=== PATIENT | female | born 1965 | race Caucasian/White ===

== ENCOUNTER 2016-05-27 00:52 | Observation (INO) | payer OTHER ==
[2016-05-27] MEDS ORDERED: ONDANSETRON 4 MG/2 ML VIAL IVP ONE ×2 (01:04→02:06)
[2016-05-27] MEDS ORDERED: NS 1,000 ML IV ONE ×3 (01:04→02:53)
--- NOTE | 2016-05-27 01:04 | EDPHY ---
H & P Stated Complaint: N/V/D since 199905/26/16 HPI/ROS: HPI CHIEF COMPLAINT: Abdominal pain, nausea, vomiting, diarrhea HISTORY OF PRESENT ILLNESS: This patient very pleasant 51-year-old female, denies any significant medical history, does not take any daily medications, no abdominal surgical history she presents emergency room with nausea vomiting and diarrhea. She tells me around 830 this evening she developed sudden-onset nausea, vomiting which is nonbilious nonbloody, as well as watery diarrhea. she also has abdominal cramping. She denies chest pain or shortness of breath. She tells me she has abdominal cramping mid abdomen. Denies fever. This was sudden onset. She ate tuna around 230 in the afternoon. She tells me that she vomited 20+ times. She still feels nauseous. She arrived to the emergency room by private vehicle for ongoing nausea vomiting. No sick contacts. Past Medical History: Denies significant medical history Past Surgical History: Denies significant surgical history Social History: denies use of drugs alcohol tobacco products, works as a professor teaches education Family History: noncontributory ROS REVIEW OF SYSTEMS: A comprehensive 10 point review of systems is otherwise negative aside from elements mentioned in the history of present illness. Exam Constitutional triage nursing summary reviewed, vital signs reviewed, awake/ alert. Eyes normal conjunctivae and sclera, EOMI, PERRLA. HENT normal inspection, atraumatic, moist mucus membranes, no epistaxis, neck supple/ no meningismus, no raccoon eyes. Respiratory clear to auscultation bilaterally, normal breath sounds, no respiratory distress, no wheezing. Cardiovascular rate normal, regular rhythm, no murmur, no edema, distal pulses normal. Gastrointestinal soft, mild tender palpation mid abdomen , no rebound, no guarding, normal bowel sounds, no distension, no pulsatile mass. Genitourinary no CVA tenderness. Musculoskeletal no midline vertebral tenderness, full range of motion, no calf swelling, no tenderness of extremities, no meningismus, good pulses, neurovascularly intact. Skin pink, warm, & dry, no rash, skin atraumatic. Neurologic awake, alert and oriented x 3, AAOx3, moves all 4 extremities equally, motor intact, sensory intact, CN II-XII intact, normal cerebellar, normal vision, normal speech. Psychiatric normal mood/affect. Heme/Lymph/Immune no lymphadenopathy. Differential diagnosis includes but is not limited to and in no particular order : Dehydration, electrolyte abnormality Bowel obstruction, appendicitis, gallbladder disease, diverticulitis, colitis, enteritis, perforated viscus, gastritis, GERD, esophagitis, urinary tract infection, pyelonephritis, kidney stones Medical Decision Making: This patient had an IV established receive a 2 L fluid bolus, IV Zofran for nausea she will have a CT scan of her abdomen pelvis to rule out significant acute intra-abdominal pathology. Check electrolytes, CBC, urinalysis, test. Re-evaluation: 0253: re-examination at this time this patient is still having nausea no active vomiting. Is noted her temperature is 38.3degrees. I will order Tylenol. She is still having ongoing nausea. I have given her Zofran and 2 L of IV fluid. I will admit to the hospitalist service for ongoing nausea vomiting and abdominal pain. Her CT scan does show enteritis. I have ordered her IV Ativan to help with her nausea as Zofran is not 100% improving. She has multiple other allergies. She is agreeable on admission for persistent nausea vomiting diarrhea enteritis. I spoke with Dr. Kaufman Who agrees to admit. Source: Patient - Personal History LMP (Females 10-55): 8-14 Days Ago Current Tetanus/Diphtheria Vaccine: Yes Tetanus Vaccine Date: 2014 - Medical/Surgical History Hx Asthma: No Hx Chronic Respiratory Disease: No Hx Diabetes: No Hx Cardiac Disease: No Hx Renal Disease: No Hx Cirrhosis: No Hx Alcoholism: No Hx HIV/AIDS: No Hx Splenectomy or Spleen Trauma: No Other PMH: bipolar diatheses (mother is bipolar). r lumpectomy of breast. appy 1997. leap procedure 1999 HPV. shingles. lasik. Hyperemesis Gravidarum. 2008 - Social History Smoking Status: Never smoked Constitutional: Initial Vital Signs Temperature (C) 36.6 C 05/27/16 00:55 Heart Rate 103 H 05/27/16 00:55 Respiratory Rate 14 05/27/16 00:55 Blood Pressure 103/89 H 05/27/16 00:55 O2 Sat (%) 99 05/27/16 00:55 O2 Delivery Mode Room Air O2 (L/minute) 2 Allergies/Adverse Reactions: fentanyl Allergy (Verified 04/23/15 14:43) lamotrigine [From Lamictal] Allergy (Verified 08/16/13 18:05) meperidine HCl [From Demerol] Allergy (Verified 08/11/14 09:36) Other-Enter Comments metoclopramide HCl [From Reglan] Allergy (Verified 07/29/14 09:40) prochlorperazine edisylate [From Compazine] Allergy (Verified 08/16/13 17:59) prochlorperazine maleate [From Compazine] Allergy (Verified 08/16/13 17:59) promethazine HCl [From Phenergan] Allergy (Verified 08/16/13 18:05) Home Medications: Medication Instructions Recorded QUEtiapine FUMARATE [Seroquel 25 6.25 mg PO HS 05/27/16 mg (*)] Medical Decision Making - Data Points Laboratory Results: Laboratory Results 05/27/16 01:45 05/27/16 01:20 Medications Given: Discontinued Medications Acetaminophen (Tylenol) 1,000 mg PO EDNOW ONE Stop: 05/27/16 02:47 Last Admin: 05/27/16 03:58 Dose: 1,000 mg Acetaminophen (Tylenol) 500 - 1,000 mg PO Q6HRS PRN PRN Reason: Pain, Mild/Fever, Can Take PO Stop: 11/23/16 04:26 Last Admin: 05/27/16 20:52 Dose: 1,000 mg Sodium Chloride (Ns) 1,000 mls @ 0 mls/hr IV ONCE ONE PRN Reason: Wide Open Stop: 05/27/16 01:05 Last Admin: 05/27/16 01:25 Dose: 1,000 mls Sodium Chloride (Ns) 1,000 mls @ 0 mls/hr IV ONCE ONE PRN Reason: Wide Open Stop: 05/27/16 01:10 Last Admin: 05/27/16 01:23 Dose: 1,000 mls Sodium Chloride (Ns) 1,000 mls @ 0 mls/hr IV ONCE ONE PRN Reason: Wide Open Stop: 05/27/16 02:54 Last Admin: 05/27/16 03:11 Dose: 1,000 mls Sodium Chloride (Ns) 1,000 mls @ 100 mls/hr IV CONT ERIC Stop: 11/23/16 04:29 Last Admin: 05/27/16 05:07 Dose: 1,000 mls Ibuprofen (Motrin) 600 mg PO EDNOW ONE Stop: 05/27/16 05:28 Last Admin: 05/27/16 05:28 Dose: 600 mg Ibuprofen (Motrin) 600 mg PO Q6 PRN PRN Reason: FEVER/PAIN Stop: 11/23/16 19:25 Last Admin: 05/27/16 19:32 Dose: 600 mg Lorazepam (Ativan Injection) 1 mg IVP EDNOW ONE Stop: 05/27/16 02:54 Last Admin: 05/27/16 03:11 Dose: 1 mg Ondansetron HCl (Zofran) 4 mg IVP EDNOW ONE Stop: 05/27/16 01:05 Last Admin: 05/27/16 01:23 Dose: 4 mg Ondansetron HCl (Zofran) 4 mg IVP EDNOW ONE Stop: 05/27/16 02:07 Last Admin: 05/27/16 02:11 Dose: 4 mg Quetiapine Fumarate (Seroquel) 6.25 mg PO HS [facility] Stop: 11/23/16 20:59 Last Admin: 05/27/16 20:53 Dose: 6.25 mg Departure - Departure Disposition: [facility] Acute Clinical Impression: Nausea & vomiting Qualifiers: Vomiting type: unspecified Vomiting Intractability: intractable Qualifier Code : (R11.2) Nausea with vomiting, unspecified Condition: Fair
[2016-05-27] MEDS ORDERED: ONDANSETRON 4 MG/2 ML VIAL ONE (01:05)
[2016-05-27 01:34] LABS: INR 0.96 (0.83-1.16); PROTIME(PATIENT) 12.7 SEC (12.0-15.0)
[2016-05-27] MEDS ORDERED: IOPAMIDOL (ISOVUE-300) 100 ML BTL IV ONE (01:41)
[2016-05-27 01:52] LABS: % IMMATURE GRANULYOCYTES 0.1 % (0.0-1.1); ABSOLUTE IMMATURE GRANULOCYTES 0.01 10^3/uL (0.00-0.10); ADD DIFF? NO; ADD MORPH? NO; ADD SCAN? NO; ATYPICAL LYMPHOCYTE FLAG 0 (0-99); FRAGMENT RBC FLAG 0 (0-99); HEMATOCRIT 41.5 % (38.0-47.0); HEMOGLOBIN 13.7 g/dL (12.6-16.3); LEFT SHIFT FLG 30 (0-99); LIPEMIA HEMOLYSIS FLAG 80 (0-99); MEAN CELL HEMOGLOBIN 30.2 pg (27.9-34.1); MEAN CELL VOLUME 91.4 fL (81.5-99.8); MEAN PLATELET VOLUME 10.2 fL (8.7-11.7); PLATELET CLUMPS FLAG 0 (0-99); PLATELET COUNT 129 10^3/uL (150-400); RED BLOOD CELL COUNT 4.54 10^6/uL (4.18-5.33); RED CELL DISTRIBUTION WIDTH 13.2 % (11.5-15.2)
[2016-05-27 02:06] LABS: ALANINE AMINOTRANSFERASE 49 IU/L (9-52); ALBUMIN 5.2 g/dL (3.5-5.0); ALKALINE PHOSPHATASE 77 IU/L (38-126); ANION GAP 15 mEq/L (8-16); ASPARTATE AMINOTRANSFERASE 54 IU/L (14-46); BILIRUBIN,TOTAL 0.8 mg/dL (0.1-1.4); BILIRUBIN-CONJUGATED 0.5 mg/dL (0.0-0.5); BILIRUBIN-UNCONJUGATED 0.3 mg/dL (0.0-1.1); CALCIUM 10.1 mg/dL (8.5-10.4); CARBON DIOXIDE 22 mEq/l (22-31); CHLORIDE 107 mEq/L (97-110); CREATININE 0.8 mg/dL (0.6-1.0); GLOMERULAR FILTRATION RATE > 60; GLUCOSE 134 mg/dL (70-100); POTASSIUM 3.8 mEq/L (3.5-5.2); SODIUM 144 mEq/L (134-144); TOTAL PROTEIN 9.1 g/dL (6.3-8.2)
[2016-05-27 02:17] LABS: OCCULT BLOOD FECES POSITIVE (NEGATIVE)
[2016-05-27 02:37] LABS: TROPONIN I < 0.012 ng/mL (0-0.034)
[2016-05-27] MEDS ORDERED: ACETAMINOPHEN 500 MG TAB PO ONE (02:46)
[2016-05-27] MEDS ORDERED: LORazepam 2 MG/ML INJ IVP ONE (02:53)
[2016-05-27] MEDS ORDERED: LORazepam 2 MG/ML INJ IVP PRN (04:27)
[2016-05-27] MEDS ORDERED: ACETAMINOPHEN 500 MG TAB PO PRN (04:27)
[2016-05-27] MEDS ORDERED: ONDANSETRON DISINTEGRATING 4 MG TAB PO PRN (04:27)
[2016-05-27] MEDS ORDERED: ONDANSETRON 4 MG/2 ML VIAL IVP PRN (04:27)
[2016-05-27] MEDS ORDERED: NS 1,000 ML IV SCH (04:30)
--- NOTE | 2016-05-27 05:21 | PDGENHP ---
History and Physical - Chief Complaint nausea, vomiting, diarrhea - History of Present Illness Patient is a 51/F with no significant past medical history who presents to the ED with complaint of acute onset n/v/d. Patient states symptoms started this evening at around 11pm, with sudden onset nausea, then started vomiting ( nonbilious, nonbloody) and having diarrhea (reports brown and red stool). She reports multiple episodes of each (> 6x), so she decided to come to the ED for further evaluation and treatment. She reports some associated chills and diffusely crampy abdominal pain, denies fevers, cough, shortness of breath, chest pain or dysuria. She also denies any recent travel outside the ( recently was in [place], [place]), denies any unusual food (ate tuna for dinner), denies recent hiking. On arrival to the ED, patient was afebrile and hemodynamically stable, but was continuously vomiting and had an episode of diarrhea. Labs were largely wnl. CT abd/pelvis was obtained and revealed enteritis of the small bowel without evidence of obstruction, perforation. She was given IVF hydration, symptom control and admitted to the hospitalist service for further management. History Information - Allergies/Home Medication List Allergies/Adverse Reactions: fentanyl Allergy (Verified 08/11/14 14:43) lamotrigine [From Lamictal] Allergy (Verified 08/16/13 18:05) meperidine HCl [From Demerol] Allergy (Verified 08/11/14 09:36) Other-Enter Comments metoclopramide HCl [From Reglan] Allergy (Verified 07/29/14 09:40) prochlorperazine edisylate [From Compazine] Allergy (Verified 08/16/13 17:59) prochlorperazine maleate [From Compazine] Allergy (Verified 08/16/13 17:59) promethazine HCl [From Phenergan] Allergy (Verified 08/16/13 18:05) Home Medications: Seroquel 07/29/14 [Last Taken Unknown] QUEtiapine FUMARATE [SEROquel] 8 mg PO DAILY 08/11/14 [Last Taken Unknown] I have personally reviewed and updated: family history, medical history, social history, surgical history - Past Medical History no pertinent PMH - Surgical History Additional surgical history: appendectomy. breast biopsy. tonsillectomy - Family History Additional family history: M: bipolar disorder. 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 Independent in ADLs. Review of Systems ROS: 10pt was reviewed & negative except for what was stated in HPI & below Physical Exam Temp Pulse Resp BP Pulse Ox 38.9 C H 112 H 18 117/74 97 05/27/16 03:58 05/27/16 03:58 05/27/16 03:58 05/27/16 03:58 05/27/16 03:58 Constitutional: no apparent distress, appears nourished, not in pain Eyes: PERRL, anicteric sclera, EOMI Ears, Nose, Mouth, Throat: hearing normal, ears appear normal, no oral mucosal ulcers, dry mucous membranes Cardiovascular: regular rate and rhythym, no murmur, rub, or gallop, pulses symmetric bilaterally, No JVD, No edema Peripheral Pulses: 2+: dorsalis-pedis (R), dorsalis-pedis (L) Respiratory: no respiratory distress, no rales or rhonchi, clear to auscultation Gastrointestinal: normoactive bowel sounds, tenderness (mild diffuse tenderness) , No guarding, No rebound, No distension Genitourinary: no bladder fullness, no bladder tenderness Skin: warm, normal color, no rashes or abrasions, no fluctuance, no induration, No mottled Musculoskeletal: full muscle strength, no muscle tenderness, normal joint ROM, no joint effusions Neurologic: AAOx3, sensation intact bilaterally, CN II-XII Intact, No weakness, No numbness Psychiatric: interacting appropriately, not anxious, not encephalopathic, thought process linear Lab Data & Imaging Review 05/27/16 01:45 05/27/16 01:20 WBC 7.20 10^3/uL (3.80-9.50) 05/27/16 01:45 RBC 4.54 10^6/uL (4.18-5.33) 05/27/16 01:45 Hgb 13.7 g/dL (12.6-16.3) 05/27/16 01:45 Hct 41.5 % (38.0-47.0) 05/27/16 01:45 MCV 91.4 fL (81.5-99.8) 05/27/16 01:45 MCH 30.2 pg (27.9-34.1) 05/27/16 01:45 MCHC 33.0 g/dL (32.4-36.7) 05/27/16 01:45 RDW 13.2 % (11.5-15.2) 05/27/16 01:45 Plt Count 129 10^3/uL (150-400) L 05/27/16 01:45 MPV 10.2 fL (8.7-11.7) 05/27/16 01:45 Neut % (Auto) 89.9 % (39.3-74.2) H 05/27/16 01:45 Lymph % (Auto) 6.4 % (15.0-45.0) L 05/27/16 01:45 [place] % (Auto) 3.2 % (4.5-13.0) L 05/27/16 01:45 Eos % (Auto) 0.3 % (0.6-7.6) L 05/27/16 01:45 Baso % (Auto) 0.1 % (0.3-1.7) L 05/27/16 01:45 Nucleat RBC Rel Count 0.0 % (0.0-0.2) 05/27/16 01:45 Absolute Neuts (auto) 6.47 10^3/uL (1.70-6.50) 05/27/16 01:45 Absolute Lymphs (auto) 0.46 10^3/uL (1.00-3.00) L 05/27/16 01:45 Absolute Monos (auto) 0.23 10^3/uL (0.30-0.80) L 05/27/16 01:45 Absolute Eos (auto) 0.02 10^3/uL (0.03-0.40) L 05/27/16 01:45 Absolute Basos (auto) 0.01 10^3/uL (0.02-0.10) L 05/27/16 01:45 Absolute Nucleated RBC 0.00 10^3/uL (0-0.01) 05/27/16 01:45 Immature Gran % 0.1 % (0.0-1.1) 05/27/16 01:45 Immature Gran # 0.01 10^3/uL (0.00-0.10) 05/27/16 01:45 PT 12.7 SEC (12.0-15.0) 05/27/16 01:20 INR 0.96 (0.83-1.16) 05/27/16 01:20 APTT 22.0 SEC (23.0-38.0) L 05/27/16 01:20 VBG Lactic Acid 2.0 mmol/L (0.7-2.1) 05/27/16 01:20 Sodium 144 mEq/L (134-144) 05/27/16 01:20 Potassium 3.8 mEq/L (3.5-5.2) 05/27/16 01:20 Chloride 107 mEq/L (97-110) 05/27/16 01:20 Carbon Dioxide 22 mEq/l (22-31) 05/27/16 01:20 Anion Gap 15 mEq/L (8-16) 05/27/16 01:20 BUN 20 mg/dL (7-23) 05/27/16 01:20 Creatinine 0.8 mg/dL (0.6-1.0) 05/27/16 01:20 Estimated GFR > 60 05/27/16 01:20 Glucose 134 mg/dL (70-100) H 05/27/16 01:20 Calcium 10.1 mg/dL (8.5-10.4) 05/27/16 01:20 Total Bilirubin 0.8 mg/dL (0.1-1.4) 05/27/16 01:20 Conjugated Bilirubin 0.5 mg/dL (0.0-0.5) 05/27/16 01:20 Unconjugated Bilirubin 0.3 mg/dL (0.0-1.1) 05/27/16 01:20 AST 54 IU/L (14-46) H 05/27/16 01:20 ALT 49 IU/L (9-52) 05/27/16 01:20 Alkaline Phosphatase 77 IU/L (38-126) 05/27/16 01:20 Troponin I < 0.012 ng/mL (0-0.034) 05/27/16 01:20 Total Protein 9.1 g/dL (6.3-8.2) H 05/27/16 01:20 Albumin 5.2 g/dL (3.5-5.0) H 05/27/16 01:20 Lipase 91.0 IU/L (23-300) 05/27/16 01:20 Beta HCG, Qual NEGATIVE 05/27/16 01:20 Stool Occult Bld Scrn POSITIVE (NEGATIVE) H 05/27/16 01:00 Visualized and Interpreted imaging results: Yes Interpretation: CT abd/pelvis: enteritis with fluid filled small bowel, no evidence of obstruction or perfortation. Assessment & Plan Assessment: Patient is a 51/F with no significant past medical history who presents to the ED with acute onset n/v/d and abdominal pain. CT reveals possible enteritis. Plan: # acute gastroenteritis Patient hemodynamically stable, LFTs, including lipase wnl. CT reveals possible acute enteritis and occult blood in stool is positive. Likely infectious etiology of symptoms, with viral leading the differential, but bacterial vs parasitic also possible. Patient denies any recent antibiotic use or travel outside [place]. Also denies any other sick contacts. Will f/u GI pathogens panel, continue IVF hydration, symptomatic treatment of n/v with zofran. No indication for antibiotics at this time. # sepsis Patient was initially afebrile, but while in the ED pt spiked temp, became tachycardic. Source is likely GI, no other infectious complaints, UA negative. Lactic acid wnl, pt given adequate IVF hydration in ED. Will cont to monitor fever curve, give tylenol prn and treat acute gastroenteritis. No indication for abx. # thrombocytopenia Slightly decreased platelets on admission CBC, but appears to be at baseline when comparing to previous labs. Will cont to monitor plts and for signs of bleeding. # dispo: admit to observation status # gen: clear liquid diet DVT ppx: low risk Full code
[2016-05-27] MEDS ORDERED: IBUPROFEN 600 MG TAB PO ONE ×3 (05:24→05:27)
[2016-05-27 06:17] LABS: COLOR PALE YELLOW; LEUKOCYTE ESTERASE,URINE NEGATIVE (NEGATIVE); NITRITE,URINE NEGATIVE (NEGATIVE)
[2016-05-27 06:48] LABS: BACTERIA TRACE /hpf (NONE SEEN); MUCUS TRACE /lpf (NONE-1+)
--- NOTE | 2016-05-27 08:28 | CT ---
CT Scan of the Abdomen and Pelvis (With Contrast) May 27, 2016 at 0225 hours. Indication: Abdominal pain. Nausea and vomiting. Technique: 80 mL of Isovue 300 were given intravenously by machine power injection. [facility] was performed from the diaphragm to the symphysis pubis. Dose reduction techniques w ere utilized. Findings: Abdomen: The lung bases are clear. Liver is unremarkable. Gallbladder is unremarkable. Pancreas is no rmal in size and appearance. Spleen is unremarkable. Both adrenal glands are normal in size and appea arti. Both kidneys enhance normally without evidence for hydronephrosis or solid mass. No significan t abdominal lymphadenopathy. Fluid-filled loops of small bowel are visualized without bowel wall thic kening or inflammatory change or air-fluid levels. Pelvis: No evidence for diverticulitis. The appendix is not visualized, however no inflammatory sánchez e is seen at the cecum or abnormal appendix. Mild degenerative change is seen in the lumbar spine. No significant free fluid in the pelvis. No evidence for bladder calculus. Impression: Fluid-filled loops of small bowel which are not significantly dilated which could represe nt enteritis. Results called to Dr. Michael Beach at 0247 hours on May 27, 2016.
--- NOTE | 2016-05-27 13:07 | HOSPPROG ---
Hospitalist Progress Note Assessment/Plan: Andria Bo is a 51/F who presented to the ED with complaint of acute onset n/v/d. Symptoms started in the evening, with sudden onset nausea, then started vomiting (nonbilious, nonbloody) and having diarrhea (reports brown and red stool). Multiple episodes of each (> 6x). She came to the ED for further evaluation and treatment. She reports some associated chills and diffusely crampy abdominal pain, denies fevers, cough, shortness of breath, chest pain or dysuria. She also denies any recent travel outside the (recently was in [place], [place]), denies any unusual food (ate tuna for dinner), denies recent hiking. #. Likely viral gastroenteritis GI pathogen panel shows nothing acute still having frequent bouts of diarrhea/ but no further vomiting febrile earlier today tolerating cl liquids #. Hypotension continue iv hydration patient says she has chronic low bp, but this is lower than her baseline #. sepsis #. thrombocytopenia * follow #. Plan: will advance diet if she continues to do well on cl liquids/ likely dc in a.m. Subjective: andria is feeling much better after getting IV fluids. Objective: Vital Signs Temp Pulse Resp BP Pulse Ox 38.3 C 97 16 94/59 L 93 05/27/16 08:34 05/27/16 08:34 05/27/16 08:34 05/27/16 08:34 05/27/16 08:34 05/26/16 05/27/16 05/28/16 05:59 05:59 05:59 Intake Total 1000 Balance 1000 PT 12.7 SEC (12.0-15.0) 05/27/16 01:20 INR 0.96 (0.83-1.16) 05/27/16 01:20 - Physical Exam Constitutional: no apparent distress, appears nourished Eyes: PERRL Ears, Nose, Mouth, Throat: hearing normal Cardiovascular: regular rate and rhythym Respiratory: no respiratory distress Gastrointestinal: soft, non-tender abdomen, No normoactive bowel sounds ( hyperactive) Skin: warm Musculoskeletal: full muscle strength Neurologic: AAOx3 Psychiatric: interacting appropriately ICD10 Worksheet Patient Problems: Problems Problem Status Diagnosed Nausea & vomiting Acute
[2016-05-27] MEDS ORDERED: IBUPROFEN 600 MG TAB PO PRN (19:26)
[2016-05-27 19:34] VITALS: RESP 16
[2016-05-27] MEDS ORDERED: QUEtiapine FUMARATE 25 MG TAB PO SCH (21:00)
[2016-05-28 07:45] LABS: ADD DIFF? NO; ADD MORPH? NO; ADD SCAN? NO; ATYPICAL LYMPHOCYTE FLAG 0 (0-99); FRAGMENT RBC FLAG 0 (0-99); HEMATOCRIT 34.7 % (38.0-47.0); HEMOGLOBIN 11.2 g/dL (12.6-16.3); LEFT SHIFT FLG 60 (0-99); LIPEMIA HEMOLYSIS FLAG 80 (0-99); MEAN CELL HEMOGLOBIN 29.5 pg (27.9-34.1); MEAN CELL HEMOGLOBIN CONCENTR. 32.3 g/dL (32.4-36.7); MEAN CELL VOLUME 91.3 fL (81.5-99.8); MEAN PLATELET VOLUME 11.1 fL (8.7-11.7); PLATELET CLUMPS FLAG 0 (0-99); PLATELET COUNT 87 10^3/uL (150-400); RED CELL DISTRIBUTION WIDTH 13.4 % (11.5-15.2)
[2016-05-28 07:59] LABS: ALANINE AMINOTRANSFERASE 80 IU/L (9-52); ALBUMIN 2.6 g/dL (3.5-5.0); ALKALINE PHOSPHATASE 48 IU/L (38-126); ANION GAP 6 mEq/L (8-16); ASPARTATE AMINOTRANSFERASE 63 IU/L (14-46); BILIRUBIN,TOTAL 0.5 mg/dL (0.1-1.4); CALCIUM 7.9 mg/dL (8.5-10.4); CARBON DIOXIDE 19 mEq/l (22-31); CHLORIDE 115 mEq/L (97-110); CREATININE 0.7 mg/dL (0.6-1.0); GLOMERULAR FILTRATION RATE > 60; GLUCOSE 80 mg/dL (70-100); POTASSIUM 3.5 mEq/L (3.5-5.2); SODIUM 140 mEq/L (134-144)
[2016-05-28 08:34] VITALS: BP 110/78; PULSE 76; TEMP 98.7; O2SAT 95
--- NOTE | 2016-05-28 11:14 | HOSPPROG ---
Hospitalist Progress Note Assessment/Plan: Dayanara Bo is a 51/F who presented to the ED with complaint of acute onset n/v/d. Symptoms started in the evening, with sudden onset nausea, then started vomiting (nonbilious, nonbloody) and having diarrhea (reports brown and red stool). Multiple episodes of each (> 6x). She came to the ED for further evaluation and treatment. She reports some associated chills and diffusely crampy abdominal pain, denies fevers, cough, shortness of breath, chest pain or dysuria. She also denies any recent travel outside the (recently was in [place], [place]), denies any unusual food (ate tuna for dinner), denies recent hiking. #. Norovirus/viral gastroenteritis GI pathogen panel confirms this no further vomiting , and diarrhea has improved febrile during her stay tolerating cl liquids #. Hypotension continue iv hydration resolved # leukopenia has hx of this/ but is lower than noted/ will need repeat labs with PCP explained to patient if this remains low along with low platelet count, she will need evaluation by a technology applications consultant #. sepsis #. thrombocytopenia * remains low #. Plan: dc home, recommending she see her doctor early next week or end of this week for f/u care Subjective: Rula is feeling better today/ eating and drinking well Objective: Vital Signs Temp Pulse Resp BP Pulse Ox 37.1 C 76 16 110/78 95 05/28/16 08:00 05/28/16 08:00 05/28/16 08:00 05/28/16 08:00 05/28/16 08:00 Laboratory Results 05/28/16 05:00 05/28/16 05:00 05/27/16 05/28/16 05/29/16 05:59 05:59 05:59 Intake Total 5118 Balance 5118 PT 12.7 SEC (12.0-15.0) 05/27/16 01:20 INR 0.96 (0.83-1.16) 05/27/16 01:20 - Physical Exam Constitutional: no apparent distress, appears nourished, not in pain Eyes: PERRL Ears, Nose, Mouth, Throat: hearing normal Respiratory: no respiratory distress Skin: warm, normal color Musculoskeletal: no muscle tenderness Neurologic: AAOx3 Psychiatric: interacting appropriately, not anxious ICD10 Worksheet Patient Problems: Problems Problem Status Diagnosed Nausea & vomiting Acute
--- NOTE | 2016-05-28 13:32 | GDS ---
[f rep st] DISCHARGE SUMMARY DISCHARGE DIAGNOSES: 1. Norovirus/viral gastroenteritis. 2. Hypotension. 3. Leukopenia. 4. Sepsis. 5. Thrombocytopenia. BRIEF HISTORY: The patient is a very nice 51-year-old woman who presented to the emergency room with complaints of acute onset of nausea, vomiting, and diarrhea. This started on the evening prior to admission, and then she started having episodes of vomiting and diarrhea. During her stay, she improved. Her stool study confirmed that she did indeed have the norovirus. She is feeling markedly better today. She is eating and drinking well. HOSPITAL COURSE: 1. Norovirus/viral gastroenteritis. She has had no further vomiting. Diarrhea is almost completely resolved. 2. Hypotension, resolved with IV hydration. 3. Leukopenia. She has a history of this, but this is lower than prior. It may be an acute reaction due to this illness, and will have her get repeat labs at the end of this week or early next week. Further follow up with her primary care provider. 4. Sepsis, resolved. 5. Thrombocytopenia, likely due to acute illness, but will have this rechecked. 6. Elevated LFTs. We will have this rechecked. PENDING LABS AND TESTS: None. CONDITION ON DISCHARGE: Stable. Blood pressure is 110/78. Heart rate is 76. Respiratory rate is 16. O2 sats are 95%. Temperature is 37.1 Celsius. MEDICATIONS AT DISCHARGE: Please see the EMR. DISCHARGE INSTRUCTIONS: 1. Take it easy for the next several days. 2. Good hand washing. 3. Get repeat labs the end of this week or early next week. Copy requested to: Primary Care Provider /[id number]/MODL MTDD
== END 2016-05-28 12:49 | disposition home or self-care (01) ==
LOC: F1N 08:01
PROVIDERS: ADMIT Internal Medicine; ATTEND Internal Medicine
DX: A08.11 Acute gastroenteropathy due to Norwalk agent (principal); I95.9 Hypotension, unspecified; D72.819 Decreased white blood cell count, unspecified; A41.9 Sepsis, unspecified organism; D69.6 Thrombocytopenia, unspecified; R94.5 Abnormal results of liver function studies
CPT/HCPCS: 74177; G0378; 96374; J2405; Q9967

== ENCOUNTER → 2016-12-02 | Outpatient (CLI) | payer OTHER | LOC: FIMAGING 12:52 | PROVIDERS: ATTEND Family Medicine | DX: Z12.31 Encounter for screening mammogram for malignant neoplasm of breast (principal) | CPT/HCPCS: G0202 ==

== ENCOUNTER → 2018-01-02 | Outpatient (CLI) | payer OTHER | LOC: FIMAGING 10:28 | PROVIDERS: ATTEND Family Medicine | DX: Z12.31 Encounter for screening mammogram for malignant neoplasm of breast (principal) ==

== ENCOUNTER → 2018-05-21 | Outpatient (CLI) | payer OTHER | LOC: BMCIMAGING 10:16 | PROVIDERS: ATTEND Family Medicine | DX: R10.9 Unspecified abdominal pain (principal) ==

== ENCOUNTER → 2018-06-26 | Outpatient (CLI) | payer OTHER | LOC: BMCIMAGING 09:15 | PROVIDERS: ATTEND Family Medicine | DX: R05 Cough (principal) ==